=== PATIENT | female | born 1980 | race Two or more races ===

== ENCOUNTER 2019-04-23 13:11 | Inpatient (IN) | payer OTHER ==
[2019-04-23 14:46] VITALS: BMI 19.4
--- NOTE | 2019-04-23 15:56 | HP ---
CIWA Score Nausea/Vomitin-Mild Nausea/No Vomiting Muscle Tremors: 1-None Visible, but [place] Anxiety: 0-No Anxiety, at Ease Agitation: 0-Normal Activity Paroxysmal Sweats: No Perspiration Orientation: 0-Oriented Tacttile Disturbances: 0-None Auditory Disturbances: 0-None Visual Disturbances: 0-None Headache: 1-Very Mild CIWA-Ar Total Score: 3 - Admission Criteria OASAS Guidelines: Admission for Medically Managed Detox: Requires at least one of the followin. CIWA greater than 12 2. Seizures within the past 24 hours 3. Delirium tremens within the past 24 hours 4. Hallucinations within the past 24 hours 5. Acute intervention needed for co occurring medical disorder 6. Acute intervention needed for co occurring psychiatric disorder 7. Severe withdrawal that cannot be handled at a lower level of care (continued vomiting, continued diarrhea, abnormal vital signs) requiring intravenous medication and/or fluids 8. Admitting History and Physical - Admission Chief Complaint: detox from alcohol History of Present Illness: 38 yo f w/ PMH HTN, bipolar disorder, Insomnia, polysubstance abuse who comes into [facility] for assistance with detoxification from alcohol and cocaine. Patient endorses drinking 2pt of nasreen vodka and 12 four-edilson drinks daily for the past 3 years. Her last drink was this morning ~10am. Patient endorses smoking ~1-3 joints per day every day since tha her last use being at 10am. Patient endorses smoking $20-30 of cocaine daily since 18 years old. Her last use was 2 weeks ago. Of note, the patient endorses taking Geodon 25mg daily for bipolar disease, Benadryl 100mg daily and clonidine for her HTN. the patient has no records at the preferred pharmacy listed and attempts to reach her previous rehab were unsuccessful. Patient was recently admitted for rehab at [facility] but left on 04/21 because she refused to take her psych meds at that institution. She states that she has "learned her lesson and wants to take her meds now." The patient also endorses being admitted to the psych unit at [facility]. Attempts to reach them for verifications of medications were unsuccessful BEE .043 on arrival Utox + THC, cocaine on arrival History Source: Patient Limitations to Obtaining History: No Limitations - Past Medical History Cardiovascular: Yes: HTN ...LMP: 02/16/15 Psych: Yes: Bipolar - Past Surgical History Past Surgical History: Yes: None - Smoking History Smoking history: Current every day smoker Have you smoked in the past 12 months: Yes Aproximately how many cigarettes per day: 5 - Alcohol/Substance Use Hx Alcohol Use: Yes - Social History Usual Living Arrangement: Yes: Other (living in friend's car) Do you think of yourself as: Straight/Heterosexual Admission ROS BHS - HPI Allergies/Adverse Reactions: Allergies Allergy/AdvReac Type Severity Reaction Status Date / Time penicillin G Allergy Severe Rash Verified 04/23/19 14:41 pickles Allergy Mild Vomiting Uncoded 04/23/19 14:41 Exam Limitations: No Limitations - Ebola screening Have you traveled outside of the country in the last 21 days: No (N) Have you had contact with anyone from an Ebola affected area: No - Review of Systems Constitutional: No Symptoms Reported EENT: reports: No Symptoms Reported Respiratory: reports: No Symptoms reported Cardiac: reports: No Symptoms Reported GI: reports: No Symptoms Reported : reports: No Symptoms Reported Integumentary: reports: No Symptoms Reported Neuro: reports: Headache Psychiatric: reports: Judgement Intact, Orientated x3 Patient History - Patient Medical History Hx Anemia: No Hx Asthma: No Hx Chronic Obstructive Pulmonary Disease (COPD): No Hx Cancer: No Hx Cardiac Disorders: No Hx Congestive Heart Failure: No Hx Hypertension: No Hx Hypercholesterolemia: No Hx Pacemaker: No HX Cerebrovascular Accident: No Hx Seizures: No (but h/oetoh related blackouts-last 1 week ago. ) Hx Dementia: No Hx Diabetes: No Hx Gastrointestinal Disorders: No Hx Liver Disease: No Hx Genitourinary Disorders: No Hx Sexually Transmitted Disorders: Yes (chlamydia and gonorrhea) Hx Renal Disease (ESRD): No Hx Thyroid Disease: No Hx Human Immunodeficiency Virus (HIV): No (neg. 2 wks ago) Hx Hepatitis C: No Hx Depression: Yes Hx Suicide Attempt: No Hx Bipolar Disorder: Yes Hx Schizophrenia: No - Patient Surgical History Past Surgical History: No Hx Neurologic Surgery: No Hx Cataract Extraction: No Hx Cardiac Surgery: No Hx Lung Surgery: No Hx Breast Surgery: No Hx Breast Biopsy: No Hx Abdominal Surgery: No Hx Appendectomy: No Hx Cholecystectomy: No Hx Genitourinary Surgery: No Hx Section: No Hx Orthopedic Surgery: No Anesthesia Reaction: No - Reproductive History Last Menstrual Period: 02/16/15 - Smoking Cessation Smoking history: Current every day smoker Have you smoked in the past 12 months: Yes Aproximately how many cigarettes per day: 5 Cigars Per Day: 0 Hx Chewing Tobacco Use: No Initiated information on smoking cessation: Yes 'Breaking Loose' booklet given: 04/23/19 - Substances abused Alcohol Substance route: Oral Frequency: 1-3 times last 30 days Amount used: vodka- 2-3pts, beers- 2(6pks x12oz) Age of first use: 11 Date of last use: 04/23/19 Cocaine Substance route: Smoking Frequency: 1-3 times last 30 days Amount used: $30-40 Age of first use: 18 Date of last use: 04/09/19 Marijuana/Hashish Substance route: Smoking Frequency: Daily Amount used: 1-2 BLUNTS Age of first use: 15 Date of last use: 04/23/19 Admission Physical Exam S - Vital Signs Vital Signs: Vital Signs - 24 hr 04/23/19 14:38 Temperature 98.6 F Pulse Rate 95 H Respiratory 18 Rate Blood Pressure 117/80 - Physical General Appearance: Yes: No Apparent Distress, Appropriately Dressed HEENTM: Yes: EOMI, SAJAN, Pharynx Normal Respiratory: Yes: Chest Non-Tender, Lungs Clear, Normal Breath Sounds, No Respiratory Distress, No Accessory Muscle Use Cardiology: Yes: Regular Rhythm, Regular Rate, S1, S2. No: JVD, Murmur, Gallop/ S3, Gallop/S4 Abdominal: Yes: Normal Bowel Sounds, Non Tender, Flat, Soft Neurological: Yes: fleece tier II-XII NML intact, Fully Oriented, Alert, Motor Strength 5/5, Normal Mood/Affect, Normal Response Integumentary: Yes: Normal Color, Dry - Diagnostic (1) Alcohol dependence with uncomplicated withdrawal Current Visit: No Status: Chronic (2) Bipolar II disorder Current Visit: No Status: Chronic (3) Cannabis abuse Current Visit: No Status: Chronic (4) Cocaine dependence Current Visit: No Status: Chronic Qualifiers: Substance use status: uncomplicated Qualified Code(s): F14.20 - Cocaine dependence, uncomplicated (5) Nicotine dependence, uncomplicated Current Visit: No Status: Chronic Qualifiers: Nicotine product type: cigarettes Qualified Code(s): F17.210 - Nicotine dependence, cigarettes, uncomplicated (6) Insomnia Current Visit: Yes Status: Acute Breathalyzer - Breathalyzer Breathalyzer: 0.043 Urine Drug Screen - Test Device Lot number: [id number] Expiration date: 12/02/20 - Control Is test valid?: Yes - Results Drug screen NEGATIVE: No Urine drug screen results: THC-Marijuana, GONZALO-Cocaine Inpatient Rehab Admission - Rehab Decision to Admit Inpatient rehab admission?: No
[2019-04-23] MEDS ORDERED: MAGNESIUM HYDROX 2400MG/30ML ORAL SUSPENSION 30 ML CUP PO PRN (16:40)
[2019-04-23] MEDS ORDERED: chlordiazePOXIDE HCL 25 MG CAPSULE PO PRN (16:40)
[2019-04-23] MEDS ORDERED: BISMUTH SUBSALICYLATE 524 MG/30 ML UD PO PRN (16:40)
[2019-04-23] MEDS ORDERED: MAGNESIUM CITRATE 300 ML BOTTLE PO PRN (16:40)
[2019-04-23] MEDS ORDERED: ACETAMINOPHEN 325 MG TABLET (FP) PO PRN ×2 (16:40)
[2019-04-23] MEDS ORDERED: hydrOXYzine PAMOATE 25 MG CAPSULE (FP) PO PRN (16:40)
[2019-04-23] MEDS ORDERED: METHOCARBAMOL 500 MG TABLET PO PRN (16:40)
[2019-04-23] MEDS ORDERED: MAG HYDROX/AL HYDROX/SIMETH 30 ML UNIT-DOSE CUP PO PRN (16:40)
[2019-04-23] MEDS ORDERED: IBUPROFEN 400 MG TABLET (FP) PO PRN (16:40)
[2019-04-23] MEDS ORDERED: MENTHOL/PHENOL 1 EACH UD MM PRN (16:40)
--- NOTE | 2019-04-23 16:49 | PN ---
Teaching Attending Note Name of Resident: Joseph Kaur ATTENDING PHYSICIAN STATEMENT I saw and evaluated the patient. I reviewed the resident's note and discussed the case with the resident. I agree with the resident's findings and plan as documented. SUBJECTIVE: Agree with resident subjective findings OBJECTIVE: Agree with resident objective findings ASSESSMENT AND PLAN: Agree with admission to detox for alcohol. Dr. Long
[2019-04-23] MEDS: chlordiazePOXIDE HCL 25 MG CAPSULE PO SCH ×2 (18:22→22:28)
[2019-04-23] MEDS: NICOTINE 14 MG/24 HOURS TOPICAL PATCH TD SCH (18:30)
[2019-04-23] MEDS: THIAMINE HCL 100 MG TABLET (FP) PO SCH (22:28)
[2019-04-23] MEDS: MELATONIN 5 MG TABLETS PO PRN (22:30)
[2019-04-24] MEDS: chlordiazePOXIDE HCL 25 MG CAPSULE PO SCH ×4 (05:47→22:13)
[2019-04-24 09:30] LABS: HEMATOCRIT 37.5 % (32.4-45.2); HEMOGLOBIN 12.6 GM/dL (10.7-15.3); MCH 36.1 pg (25.7-33.7); MCHC 33.5 g/dl (32.0-36.0); MEAN CELL VOLUME 107.9 fl (80-96); MEAN PLT VOLUME 9.9 fl (7.5-11.1); PLATELET COUNT 214 K/MM3 (134-434); RBC 3.48 M/mm3 (3.60-5.2); RDW 14.5 % (11.6-15.6); WHITE BLOOD COUNT 6.3 K/mm3 (4.0-10.0)
[2019-04-24] MEDS: PRENATAL VITAMINS W/ FOLIC ACID TABLET (FP) PO SCH (10:09)
[2019-04-24] MEDS: NICOTINE 14 MG/24 HOURS TOPICAL PATCH TD SCH (10:09)
[2019-04-24 10:59] LABS: ALBUMIN 3.4 g/dl (3.4-5.0); BILIRUBIN,TOTAL 0.5 mg/dL (0.2-1); BLOOD UREA NITROGEN 15.9 mg/dL (7-18); CALCIUM 9.3 mg/dL (8.5-10.1); CREATININE 0.7 mg/dL (0.55-1.3); POTASSIUM 3.9 mmol/L (3.5-5.1); TOT PROT 6.4 g/dl (6.4-8.2)
--- NOTE | 2019-04-24 12:33 | PN ---
[facility] CIWA - CIWA Score Nausea/Vomitin-No Nausea/No Vomiting Muscle Tremors: 2 Anxiety: 3 Agitation: 1-Slight > Activity Paroxysmal Sweats: 3 Orientation: 0-Oriented Tacttile Disturbances: 0-None Auditory Disturbances: 0-None Visual Disturbances: 0-None Headache: 2-Mild CIWA-Ar Total Score: 11 S Progress Note (SOAP) Subjective: c/o headache, anxiety, sweats, and interrupted sleep. Objective: 04/24/19 12:33 Vital Signs 04/24/19 04/24/19 06:44 09:29 Temperature 97.7 F 97.0 F L Pulse Rate 74 76 Respiratory 18 16 Rate Blood Pressure 101/67 110/77 Laboratory Last Values WBC 6.3 K/mm3 (4.0-10.0) 04/24/19 07:40 RBC 3.48 M/mm3 (3.60-5.2) L 04/24/19 07:40 Hgb 12.6 GM/dL (10.7-15.3) 04/24/19 07:40 Hct 37.5 % (32.4-45.2) 04/24/19 07:40 MCV 107.9 fl (80-96) H 04/24/19 07:40 MCH 36.1 pg (25.7-33.7) H 04/24/19 07:40 MCHC 33.5 g/dl (32.0-36.0) 04/24/19 07:40 RDW 14.5 % (11.6-15.6) 04/24/19 07:40 Plt Count 214 K/MM3 (134-434) 04/24/19 07:40 MPV 9.9 fl (7.5-11.1) 04/24/19 07:40 Sodium 140 mmol/L (136-145) 04/24/19 07:40 Potassium 3.9 mmol/L (3.5-5.1) 04/24/19 07:40 Chloride 107 mmol/L (98-107) 04/24/19 07:40 Carbon Dioxide 27 mmol/L (21-32) 04/24/19 07:40 Anion Gap 6 MMOL/L (8-16) L 04/24/19 07:40 BUN 15.9 mg/dL (7-18) 04/24/19 07:40 Creatinine 0.7 mg/dL (0.55-1.3) 04/24/19 07:40 Est GFR (CKD-EPI)AfAm 127.39 04/24/19 07:40 Est GFR (CKD-EPI)NonAf 109.91 04/24/19 07:40 Random Glucose 88 mg/dL (74-106) 04/24/19 07:40 Calcium 9.3 mg/dL (8.5-10.1) 04/24/19 07:40 Total Bilirubin 0.5 mg/dL (0.2-1) 04/24/19 07:40 AST 27 U/L (15-37) 04/24/19 07:40 ALT 41 U/L (13-61) 04/24/19 07:40 Alkaline Phosphatase 58 U/L (45-117) 04/24/19 07:40 Total Protein 6.4 g/dl (6.4-8.2) 04/24/19 07:40 Albumin 3.4 g/dl (3.4-5.0) 04/24/19 07:40 Labs noted. Assessment: 04/24/19 12:33 AOX3, in no respiratory distress. Full ROM, ambulating in the unit. Withdrawal symptoms. Plan: continue detox.
--- NOTE | 2019-04-24 13:38 | CONSULT ---
[facility] Psychiatric Consult - Data Date of interview: 04/24/19 Admission source: [facility] Identifying data: Readmission to [facility] for this 38 y/o AA female self- referred for detoxification. DIEGO issues : alcohol, cocaine, cannabis, nicotine. Interviewed at [address] [place] [address]. Patient is single, mother of five, homeless, unemployed and supported on food stamps. Substance Abuse History: Discussed with the patient. Details in current [facility] report as follows : Smoking history: Current every day smoker. Have you smoked in the past 12 months: Yes. Aproximately how many cigarettes per day: 5. Cigars Per Day: 0. Hx Chewing Tobacco Use: No. Initiated information on smoking cessation: Yes. 'Breaking Loose' booklet given: 04/23/19. - Substances abused. Alcohol. Substance route: Oral. Frequency: 1-3 times last 30 days. Amount used: vodka- 2-3pts, beers- 2(6pks x12oz). Age of first use: 11. Date of last use: 04/23/19. Cocaine. Substance route: Smoking. Frequency: 1-3 times last 30 days. Amount used: $30-40. Age of first use: 18. Date of last use: 04/09/19. Marijuana/Hashish. Substance route: Smoking. Frequency: Daily. Amount used: 1-2 BLUNTS. Age of first use: 15. Date of last use: 04/23/19 Medical History: History of treatment for chlamydia and gonorrhea. Psychiatric History: History of Bipolar Disorder since age 16. Patient endorses a history of 2-3 psychiatric hospitalizations ([facility] in [place] + [facility]). She was kept for overnight observation at [facility] prior to this [facility] visit (not admitted). Ms Payan states that she has been prescribed [facility] (dose not recalled) [facility]. No psychiatric OPD care. Chronically non-adherent to psychotropic medications. It appears that the patient gets scripts from occasional visits to [facility] facilities. Amits to history of one suicide attempt at age 23 (wrist-cutting). Physical/Sexual Abuse/Trauma History: Declines to discuss this domain. Additional Comment: Urine drug screen results: THC-Marijuana, GONZALO-Cocaine. Noted. Mental Status Exam - Mental Status Exam Alert and Oriented to: Time, Place, Person Cognitive Function: Good Patient Appearance: Well Groomed Mood: Withdrawn, Hopeful Affect: Mood Congruent Patient Behavior: Fatigued, Appropriate, Cooperative Speech Pattern: Clear Voice Loudness: Normal Thought Process: Intact, Goal Oriented Thought Disorder: Not Present Hallucinations: Denies Suicidal Ideation: Denies Homicidal Ideation: Denies Insight/Judgement: Poor Sleep: Poorly, Difficulty falling asleep (wants benadryl at bedtime) Appetite: Good Gait/Station: Normal Psychiatric Findings - Problem List ([place] 1, 2,3) (1) Alcohol use disorder Current Visit: Yes Status: Chronic (2) Cannabis dependence Current Visit: Yes Status: Chronic (3) Cocaine dependence Current Visit: Yes Status: Chronic Qualifiers: Substance use status: uncomplicated Qualified Code(s): F14.20 - Cocaine dependence, uncomplicated (4) Nicotine dependence, uncomplicated Current Visit: Yes Status: Chronic Qualifiers: Nicotine product type: cigarettes Qualified Code(s): F17.210 - Nicotine dependence, cigarettes, uncomplicated (5) Substance induced mood disorder Current Visit: Yes Status: Chronic (6) History of bipolar disorder Current Visit: Yes Status: Chronic Comment: Non-compliant with medications. (7) Insomnia Current Visit: Yes Status: Chronic - Initial Treatment Plan Initial Treatment Plan: Psychoeducation. Sleep hygiene. Detoxification. Resumed : geodon 20 mg po daily (patient's request). Side effects/benefiys discussed with the patient. Ms Payan is in agreement with this plan of care. Observation.
[2019-04-24] MEDS: THIAMINE HCL 100 MG TABLET (FP) PO SCH (22:12)
[2019-04-24] MEDS: MELATONIN 5 MG TABLETS PO PRN (22:13)
[2019-04-25] MEDS: chlordiazePOXIDE HCL 25 MG CAPSULE PO SCH ×4 (05:58→22:34)
[2019-04-25] MEDS: ZIPRASIDONE 20 MG CAPSULE PO SCH (08:32)
[2019-04-25] MEDS: NICOTINE 14 MG/24 HOURS TOPICAL PATCH TD SCH (10:40)
[2019-04-25] MEDS: PRENATAL VITAMINS W/ FOLIC ACID TABLET (FP) PO SCH (10:40)
--- NOTE | 2019-04-25 12:43 | PN ---
S CIWA - CIWA Score Nausea/Vomitin-Mild Nausea/No Vomiting Muscle Tremors: 2 Anxiety: 3 Agitation: 3 Paroxysmal Sweats: 2 Orientation: 0-Oriented Tacttile Disturbances: 1-Very Mild Itch/Numbness Auditory Disturbances: 0-None Visual Disturbances: 0-None Headache: 2-Mild CIWA-Ar Total Score: 14 BHS Progress Note (SOAP) Subjective: 38 years old female admitted on 04/23/19 for alcohol withdrawal sx management treating with librium detox regimen anxious about drinking again around holiday time estimated discharge date 04/28/19 patient prefers to be discharged on 04/27/29 or 04/29/19 emotional assurance given discuss positive influence of social support networking Objective: 04/25/19 12:42 Vital Signs Temperature 98.2 F 04/25/19 09:14 Pulse Rate 85 04/25/19 09:14 Respiratory Rate 16 04/25/19 09:14 Blood Pressure 102/72 04/25/19 09:14 O2 Sat by Pulse Oximetry (%) Laboratory Last Values WBC 6.3 K/mm3 (4.0-10.0) 04/24/19 07:40 RBC 3.48 M/mm3 (3.60-5.2) L 04/24/19 07:40 Hgb 12.6 GM/dL (10.7-15.3) 04/24/19 07:40 Hct 37.5 % (32.4-45.2) 04/24/19 07:40 MCV 107.9 fl (80-96) H 04/24/19 07:40 MCH 36.1 pg (25.7-33.7) H 04/24/19 07:40 MCHC 33.5 g/dl (32.0-36.0) 04/24/19 07:40 RDW 14.5 % (11.6-15.6) 04/24/19 07:40 Plt Count 214 K/MM3 (134-434) 04/24/19 07:40 MPV 9.9 fl (7.5-11.1) 04/24/19 07:40 Sodium 140 mmol/L (136-145) 04/24/19 07:40 Potassium 3.9 mmol/L (3.5-5.1) 04/24/19 07:40 Chloride 107 mmol/L (98-107) 04/24/19 07:40 Carbon Dioxide 27 mmol/L (21-32) 04/24/19 07:40 Anion Gap 6 MMOL/L (8-16) L 04/24/19 07:40 BUN 15.9 mg/dL (7-18) 04/24/19 07:40 Creatinine 0.7 mg/dL (0.55-1.3) 04/24/19 07:40 Est GFR (CKD-EPI)AfAm 127.39 04/24/19 07:40 Est GFR (CKD-EPI)NonAf 109.91 04/24/19 07:40 Random Glucose 88 mg/dL (74-106) 04/24/19 07:40 Calcium 9.3 mg/dL (8.5-10.1) 04/24/19 07:40 Total Bilirubin 0.5 mg/dL (0.2-1) 04/24/19 07:40 AST 27 U/L (15-37) 04/24/19 07:40 ALT 41 U/L (13-61) 04/24/19 07:40 Alkaline Phosphatase 58 U/L (45-117) 04/24/19 07:40 Total Protein 6.4 g/dl (6.4-8.2) 04/24/19 07:40 Albumin 3.4 g/dl (3.4-5.0) 04/24/19 07:40 RPR Titer Nonreactive (NONREACTIVE) 04/24/19 07:40 HIV 1&2 Antibody Screen Negative 04/24/19 07:40 HIV P24 Antigen Negative 04/24/19 07:40 04/25/19 12:42 lab noted Assessment: 04/25/19 12:42 alcohol withdrawal Plan: librium regimen
[2019-04-25] MEDS ORDERED: ZIPRASIDONE 20 MG CAPSULE PO ONE (15:44)
--- NOTE | 2019-04-25 15:46 | PN ---
[facility] Progress Note Note: Psychiatric nurse practitioner note: Patient unable to receive her morning dose of geodon 20mg this morning due to difficulty with medication verification. Medications verified this afternoon. Will order one time dose of geodon 20mg.
[2019-04-25] MEDS: THIAMINE HCL 100 MG TABLET (FP) PO SCH (22:34)
[2019-04-26] MEDS ORDERED: chlordiazePOXIDE HCL 10 MG CAPSULE PO PRN
[2019-04-26] MEDS: chlordiazePOXIDE HCL 10 MG CAPSULE PO SCH ×4 (04:49→22:10)
[2019-04-26] MEDS: ZIPRASIDONE 20 MG CAPSULE PO SCH (07:23)
[2019-04-26] MEDS: PRENATAL VITAMINS W/ FOLIC ACID TABLET (FP) PO SCH (10:36)
[2019-04-26] MEDS: NICOTINE 14 MG/24 HOURS TOPICAL PATCH TD SCH (10:36)
--- NOTE | 2019-04-26 13:09 | PN ---
S CIWA - CIWA Score Nausea/Vomitin-Mild Nausea/No Vomiting Muscle Tremors: 2 Anxiety: 2 Agitation: 1-Slight > Activity Paroxysmal Sweats: 2 Orientation: 0-Oriented Tacttile Disturbances: 1-Very Mild Itch/Numbness Auditory Disturbances: 0-None Visual Disturbances: 0-None Headache: 1-Very Mild CIWA-Ar Total Score: 10 S Progress Note (SOAP) Subjective: 38 years old female admitted on 04/23/19 for alcohol withdrawal sx management treating with librium detox regimen requests to leave one day early 04/27/19 as per estimated date of 04/28/19 reports feeling better today ate breakfast and lunch ambulating on hallway social with peers in day room Objective: 04/26/19 13:10 Vital Signs Temperature 96.4 F L 04/26/19 09:30 Pulse Rate 120 H 04/26/19 09:30 Respiratory Rate 18 04/26/19 09:30 Blood Pressure 118/87 04/26/19 09:30 O2 Sat by Pulse Oximetry (%) Laboratory Last Values WBC 6.3 K/mm3 (4.0-10.0) 04/24/19 07:40 RBC 3.48 M/mm3 (3.60-5.2) L 04/24/19 07:40 Hgb 12.6 GM/dL (10.7-15.3) 04/24/19 07:40 Hct 37.5 % (32.4-45.2) 04/24/19 07:40 MCV 107.9 fl (80-96) H 04/24/19 07:40 MCH 36.1 pg (25.7-33.7) H 04/24/19 07:40 MCHC 33.5 g/dl (32.0-36.0) 04/24/19 07:40 RDW 14.5 % (11.6-15.6) 04/24/19 07:40 Plt Count 214 K/MM3 (134-434) 04/24/19 07:40 MPV 9.9 fl (7.5-11.1) 04/24/19 07:40 Sodium 140 mmol/L (136-145) 04/24/19 07:40 Potassium 3.9 mmol/L (3.5-5.1) 04/24/19 07:40 Chloride 107 mmol/L (98-107) 04/24/19 07:40 Carbon Dioxide 27 mmol/L (21-32) 04/24/19 07:40 Anion Gap 6 MMOL/L (8-16) L 04/24/19 07:40 BUN 15.9 mg/dL (7-18) 04/24/19 07:40 Creatinine 0.7 mg/dL (0.55-1.3) 04/24/19 07:40 Est GFR (CKD-EPI)AfAm 127.39 04/24/19 07:40 Est GFR (CKD-EPI)NonAf 109.91 04/24/19 07:40 Random Glucose 88 mg/dL (74-106) 04/24/19 07:40 Calcium 9.3 mg/dL (8.5-10.1) 04/24/19 07:40 Total Bilirubin 0.5 mg/dL (0.2-1) 04/24/19 07:40 AST 27 U/L (15-37) 04/24/19 07:40 ALT 41 U/L (13-61) 04/24/19 07:40 Alkaline Phosphatase 58 U/L (45-117) 04/24/19 07:40 Total Protein 6.4 g/dl (6.4-8.2) 04/24/19 07:40 Albumin 3.4 g/dl (3.4-5.0) 04/24/19 07:40 RPR Titer Nonreactive (NONREACTIVE) 04/24/19 07:40 HIV 1&2 Antibody Screen Negative 04/24/19 07:40 HIV P24 Antigen Negative 04/24/19 07:40 lab noted Assessment: 04/26/19 13:12 alcohol withdrawal Plan: librium regimen
[2019-04-26] MEDS: THIAMINE HCL 100 MG TABLET (FP) PO SCH (22:10)
[2019-04-26] MEDS: MELATONIN 5 MG TABLETS PO PRN (22:10)
[2019-04-27] MEDS ORDERED: chlordiazePOXIDE HCL 10 MG CAPSULE PO SCH (05:00)
[2019-04-27 06:23] VITALS: BP 98/57; PULSE 71; TEMP 97.1
[2019-04-27] MEDS: ZIPRASIDONE 20 MG CAPSULE PO SCH (07:23)
--- NOTE | 2019-04-27 11:15 | DS ---
[facility] Detox Discharge Summary Admission Date: 04/23/19 Discharge Date: 04/27/19 - History Present History: Alcohol Dependence Additional Comments: 38 years old female admitted on 04/23/19 for alcohol withdrawal sx management treated with librium detox regimen patient tolerated well alert oriented x 3 respiratory clear lung bilaterally on auscultation skin warm and dry abdomen soft no rebound tenderness - Physical Exam Results Vital Signs: Vital Signs Temperature 97.1 F L 04/27/19 06:23 Pulse Rate 71 04/27/19 06:23 Respiratory Rate 18 04/27/19 06:23 Blood Pressure 98/57 L 04/27/19 06:23 O2 Sat by Pulse Oximetry (%) Pertinent Admission Physical Exam Findings: alcohol withdrawal Laboratory Last Values WBC 6.3 K/mm3 (4.0-10.0) 04/24/19 07:40 RBC 3.48 M/mm3 (3.60-5.2) L 04/24/19 07:40 Hgb 12.6 GM/dL (10.7-15.3) 04/24/19 07:40 Hct 37.5 % (32.4-45.2) 04/24/19 07:40 MCV 107.9 fl (80-96) H 04/24/19 07:40 MCH 36.1 pg (25.7-33.7) H 04/24/19 07:40 MCHC 33.5 g/dl (32.0-36.0) 04/24/19 07:40 RDW 14.5 % (11.6-15.6) 04/24/19 07:40 Plt Count 214 K/MM3 (134-434) 04/24/19 07:40 MPV 9.9 fl (7.5-11.1) 04/24/19 07:40 Sodium 140 mmol/L (136-145) 04/24/19 07:40 Potassium 3.9 mmol/L (3.5-5.1) 04/24/19 07:40 Chloride 107 mmol/L (98-107) 04/24/19 07:40 Carbon Dioxide 27 mmol/L (21-32) 04/24/19 07:40 Anion Gap 6 MMOL/L (8-16) L 04/24/19 07:40 BUN 15.9 mg/dL (7-18) 04/24/19 07:40 Creatinine 0.7 mg/dL (0.55-1.3) 04/24/19 07:40 Est GFR (CKD-EPI)AfAm 127.39 04/24/19 07:40 Est GFR (CKD-EPI)NonAf 109.91 04/24/19 07:40 Random Glucose 88 mg/dL (74-106) 04/24/19 07:40 Calcium 9.3 mg/dL (8.5-10.1) 04/24/19 07:40 Total Bilirubin 0.5 mg/dL (0.2-1) 04/24/19 07:40 AST 27 U/L (15-37) 04/24/19 07:40 ALT 41 U/L (13-61) 04/24/19 07:40 Alkaline Phosphatase 58 U/L (45-117) 04/24/19 07:40 Total Protein 6.4 g/dl (6.4-8.2) 04/24/19 07:40 Albumin 3.4 g/dl (3.4-5.0) 04/24/19 07:40 RPR Titer Nonreactive (NONREACTIVE) 04/24/19 07:40 HIV 1&2 Antibody Screen Negative 04/24/19 07:40 HIV P24 Antigen Negative 04/24/19 07:40 lab noted - Treatment Hospital Course: Detox Protocol Followed, Detoxed Safely, Responded well, Discharged Condition Good, Rehab Referral Accepted Patient has Accepted [facility] - Medication Discharge Medications: Ambulatory Orders Ziprasidone [Geodon -] 20 mg PO BID #60 capsule 04/05/15 - Diagnosis (1) Nicotine dependence, uncomplicated Current Visit: Yes Status: Acute Qualifiers: Nicotine product type: cigarettes Qualified Code(s): F17.210 - Nicotine dependence, cigarettes, uncomplicated (2) Substance induced mood disorder Current Visit: Yes Status: Suspected (3) Alcohol dependence with uncomplicated withdrawal Current Visit: Yes Status: Acute - AMA Did Patient Leave Against Medical Advice: No CIWA Score - CIWA Score Nausea/Vomitin-No Nausea/No Vomiting Muscle Tremors: 2 Anxiety: 1-Mildly Anxious Agitation: 1-Slight > Activity Paroxysmal Sweats: 1-Minimal Palms Moist Orientation: 0-Oriented Tacttile Disturbances: 0-None Auditory Disturbances: 0-None Visual Disturbances: 0-None Headache: 0-None Present CIWA-Ar Total Score: 5
[2019-04-28] MEDS ORDERED: chlordiazePOXIDE HCL 10 MG CAPSULE PO ONE (05:00)
== END 2019-04-27 09:01 | disposition home or self-care (01) | DRG 774 ==
LOC: YASAS 13:11 → Y3N 17:37
PROVIDERS: ADMIT Allergy & Immunology; ATTEND Allergy & Immunology
PROC: HZ2ZZZZ Detoxification Services for Substance Abuse Treatment (ICD-10-PCS; principal; 2019-04-23)
DX: F10.230 Alcohol dependence with withdrawal, uncomplicated (principal); F14.20 Cocaine dependence, uncomplicated; F12.20 Cannabis dependence, uncomplicated; F17.210 Nicotine dependence, cigarettes, uncomplicated; F19.24 Other psychoactive substance dependence with psychoactive substance-induced mood disorder; F31.81 Bipolar II disorder; I10 Essential (primary) hypertension; G47.00 Insomnia, unspecified; Z87.42 Personal history of other diseases of the female genital tract; Z88.0 Allergy status to penicillin; Z91.018 Allergy to other foods
CPT/HCPCS: 36415; 80053; 81025; 85027; 86593; 87389